=== PATIENT | male | born 1980 | race Caucasian/White ===

== ENCOUNTER 2017-03-16 14:39 | Emergency (ER) | payer OTHER ==
[2017-03-16 14:55] VITALS: BP 144/89
--- NOTE | 2017-03-16 15:40 | UC ---
Respiratory Complaint HPI - History of Current Complaint Chief Complaint: UCRespiratory Stated Complaint: CHEST CONGESTION, AND COUGH Time Seen by Provider: 03/16/17 15:39 Hx Obtained From: Patient Onset/Duration: Sudden Onset Severity Initially: Moderate Severity Currently: Moderate Pain Scale Used: 0-10 Numeric - 5 - Allergies/Home Medications Allergies/Adverse Reactions: Allergies Allergy/AdvReac Type Severity Reaction Status Date / Time No Known Allergies Allergy Verified 03/16/17 14:52 PMH/Surg Hx/FS Hx/Imm Hx Previously Healthy: Yes - Surgical History Surgical History: Yes Surgery Procedure, Year, and Place: KIDNEY STONE REMOVED - Family History Known Family History: Positive: None - Social History Alcohol Use: Rare Substance Use Type: None Smoking Status (MU): Never Smoked Tobacco Type: Smokeless Tobacco - Immunization History Most Recent Tetanus Shot: UNSURE Review of Systems Constitutional: Negative Skin: Negative Eyes: Negative ENT: Sore Throat, Nasal Discharge, Sinus Congestion, Sinus Pain/Tenderness Respiratory: Negative Cardiovascular: Negative Gastrointestinal: Negative Genitourinary: Negative Motor: Negative Neurovascular: Negative Musculoskeletal: Negative Neurological: Negative Psychological: Negative All Other Systems Reviewed And Are Negative: Yes Physical Exam Triage Information Reviewed: Yes Appearance: Well-Appearing Vital Signs: Initial Vital Signs Temp 37.2 C 03/16/17 14:53 Pulse 95 03/16/17 14:53 Resp 17 03/16/17 14:53 BP 144/89 03/16/17 14:53 Pulse Ox 99 03/16/17 14:53 Eye Exam: Normal ENT: Positive: Pharyngeal erythema, Nasal congestion, Nasal drainage, Tonsillar swelling Dental Exam: Normal Neck exam: Normal Neck: Positive: 1 Respiratory Exam: Normal Cardiovascular Exam: Normal Abdominal Exam: Normal Musculoskeletal Exam: Normal Neurological Exam: Normal Psychological Exam: Normal Skin Exam: Normal Diagnostic Evaluation - Laboratory O2 Sat by Pulse Oximetry: 99 Respiratory Course/Dx - Differential Dx/Diagnosis Provider Diagnoses: SINUS INFECTION. ASTHMA Discharge - Discharge Plan Condition: Stable Disposition: HOME Prescriptions: Amoxicillin/Clavulanate TAB* [Augmentin TAB 875*] 875 mg PO BID #20 tab guaiFENesin/CODIEN 100MG-10MG* [Robitussin AC 100Mg-10Mg*] 5 ml PO Q8H PRN #120 udc MDD 15 ml PRN Reason: Cough Patient Education Materials: Asthma (ED) Referrals: Kristopher Ashraf MD [Primary Care Provider] -
== END 2017-03-16 15:56 | disposition home or self-care (01) ==
LOC: UCEAST 14:39
DX: J32.9 Chronic sinusitis, unspecified (principal); J45.909 Unspecified asthma, uncomplicated
CPT/HCPCS: 99212; G0463

== ENCOUNTER 2017-12-08 07:02 | Emergency (ER) | payer OTHER ==
[2017-12-08 07:14] VITALS: BP 111/85
[2017-12-08] MEDS ORDERED: Albuterol 2.5 MG/3 ML NEB.SOL* (0.083%) INH ONE (07:36)
--- NOTE | 2017-12-08 07:46 | UC ---
Respiratory Complaint HPI - HPI Summary HPI Summary: PATIENT PRESENTS COMPLAINING OF 4 DAYS OF SHORTNESS OF BREATH, COUGH AND WHEEZE. STATES HE WAS IN [place] FOR A BUSINESS TRIP AND SYMPTOMS STARTED WHEN HE RETURNED. HE WAS USING HIS ALBUTEROL INHALER BUT RAN OUT. HE DENIES ANY FEVERS SORE THROAT OR NAUSEA/VOMITING. HERE HE REPORTS HIS EARS FEEL PLUGGED. STATES HE FEELS LIKE THIS IS HIS ASTHMA. HE IS NOT SLEEPING WELL DUE TO WAKING UP AT NIGHT COUGHING. - History of Current Complaint Chief Complaint: UCGeneralIllness Stated Complaint: CHEST CONGESTION Time Seen by Provider: 12/08/17 07:10 Hx Obtained From: Patient Onset/Duration: Gradual Onset, Lasting Days, Still Present Severity Initially: Moderate Severity Currently: Moderate Pain Intensity: 6 Pain Scale Used: 0-10 Numeric Character: Cough: Nonproductive Aggravating Factors: Deep Breaths Alleviating Factors: Bronchodilator Associated Signs And Symptoms: Positive: Dyspnea, Wheezing. Negative: Fever - Allergies/Home Medications Allergies/Adverse Reactions: Allergies Allergy/AdvReac Type Severity Reaction Status Date / Time No Known Allergies Allergy Verified 12/08/17 07:14 Home Medications: Home Medications GuaiFENesin DM* [Robitussin DM*] 1 dose PO Q2HR 12/08/17 [History Confirmed ] Guaifenesin/Pseudoephedrne HCl [Mucinex D ER Tablet] 1 tab PO BID 12/08/17 [ History Confirmed 12/08/17] Vitamins A, B, C , D 12/08/17 [History] PMH/Surg Hx/FS Hx/Imm Hx Respiratory History: Asthma - Surgical History Surgical History: Yes Surgery Procedure, Year, and Place: KIDNEY STONE REMOVED - Family History Known Family History: Positive: None Negative: Hypertension - Social History Alcohol Use: Rare Substance Use Type: None Smoking Status (MU): Never Smoked Tobacco Type: Smokeless Tobacco - Immunization History Most Recent Tetanus Shot: UNSURE Review of Systems Constitutional: Negative ENT: Ear Ache Respiratory: Shortness Of Breath, Cough, Other - WHEEZE Cardiovascular: Negative Gastrointestinal: Negative All Other Systems Reviewed And Are Negative: Yes Physical Exam Triage Information Reviewed: Yes Appearance: Well-Appearing, No Pain Distress, Well-Nourished Vital Signs: Initial Vital Signs Temp 99 F 12/08/17 07:09 Pulse 101 12/08/17 07:09 Resp 22 12/08/17 07:09 BP 111/85 12/08/17 07:09 Pulse Ox 96 12/08/17 07:09 Vital Signs Reviewed: Yes Eyes: Positive: Conjunctiva Clear ENT: Positive: Hearing grossly normal, Pharynx normal, TMs normal - AFTER IRRIGATION OF CERUMEN Neck: Positive: Supple, Nontender, No Lymphadenopathy Respiratory Exam: Normal Respiratory: Positive: No respiratory distress, No accessory muscle use, Decreased breath sounds. Negative: Wheezing Cardiovascular Exam: Normal Abdomen Description: Positive: Soft Musculoskeletal: Positive: No Edema Neurological: Positive: Alert Psychological: Positive: Age Appropriate Behavior Skin: Negative: rashes UC Diagnostic Evaluation - Laboratory O2 Sat by Pulse Oximetry: 96 Re-Evaluation - Re-Evaluation First Eval Re-Evaluation Time: 08:05 - FEELS BETTER AFTER ALBUTEROL NEBULIZER Change: Improved Respiratory Course/Dx - Course Course Of Treatment: RIGHT EAR SUCCESSFULLY IRRIGATED BY RN - TM CLEAR - Differential Dx/Diagnosis Provider Diagnoses: 1. ASTHMA EXACERBATION. 2. RIGHT EAR CERUMEN IMPACTION Discharge - Sign-Out/Discharge Documenting (check all that apply): Discharge/Admit/Transfer - Discharge Plan Condition: Stable Disposition: HOME Prescriptions: Albuterol HFA INHALER* [Ventolin HFA Inhaler*] 2 puff INH Q4H PRN #1 mdi PRN Reason: Shortness Of Breath predniSONE TAB* [Deltasone TAB*] 50 mg PO DAILY #5 tab Patient Education Materials: Asthma (ED), Cerumen Impaction (ED) Forms: *Work Release Referrals: Kristopher Ashraf MD [Primary Care Provider] - If Needed Additional Instructions: NOW THAT YOUR EAR CANALS ARE CLEAR OF WAX YOU MAY USE A QTIP TO GENTLY AND CAREFULLY CLEAN YOUR EARS ONCE OR TWICE A WEEK TO KEEP WAX FROM BUILDING UP. DO NOT INSERT THE QTIP ANY FURTHER THAN THE DEPTH OF THE [place]. - Billing Disposition and Condition Condition: STABLE Disposition: Home
== END 2017-12-08 08:15 | disposition home or self-care (01) ==
LOC: UCEAST 07:02
DX: J45.901 Unspecified asthma with (acute) exacerbation (principal); H61.21 Impacted cerumen, right ear
CPT/HCPCS: 99213; G0463

== ENCOUNTER 2018-03-28 12:59 | Emergency (ER) | payer OTHER ==
[2018-03-28] MEDS ORDERED: LORazepam TAB(*) 1 MG PO ONE (14:16)
[2018-03-28] MEDS ORDERED: Ketorolac INJ* 30 MG/ML 1 ML VIAL IM ONE (14:16)
[2018-03-28 14:21] LABS: EGFR Non-African American 121.6 (>60)
[2018-03-28 14:26] LABS: Lithium < 0.10 mmol/L (0.6-1.2)
[2018-03-28 14:28] LABS: ABS Basophils 0.1 10^3/ul (0-0.2); ABS Eosinophils 0.2 10^3/ul (0-0.6); ABS Lymphocytes 2.5 10^3/ul (1.0-4.8); ABS Monocytes 0.6 10^3/ul (0-0.8); ABS Neutrophils 3.7 10^3/ul (1.5-7.7); ABS Nucleated RBC 0 10^3/ul; Eosinophil % 3.3 % (0-6); Hematocrit 43 % (42-52); Hemoglobin 14.6 g/dl (14.0-18.0); Lymphocyte % 34.8 % (25-47); Mean Corpuscular HGB Conc 34 g/dl (31-36); Mean Corpuscular Hemoglobin 30 pg (27-31); Mean Corpuscular Volume 89 fL (80-94); Mean Platelet Volume 9.8 um3 (7.4-10.4); Nucleated Red Blood Cells % 0.1; Platelet Count 165 10^3/ul (150-450); Red Blood Count 4.85 10^6/ul (4.00-5.40); Red Cell Distribution Width 14 % (10.5-15); White Blood Count 7.1 10^3/ul (3.5-10.8)
--- NOTE | 2018-03-28 15:08 | ED ---
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 The pain rated 7/10 n severity is aggravated by sitting. He notes nausea but denies CP and dysuria. He applied a heat pad to no relief. - History of Current Complaint Chief Complaint: EDFlankPain Stated Complaint: ABDOMINAL PAIN Time Seen by Provider: 03/28/18 13:22 Hx Obtained From: Patient Onset/Duration: Sudden Onset - 12:00 noon today, Still Present Timing: Lasting Hours Back Pain Location: Is Diffuse - At the lower back Pain Intensity: 7 Pain Scale Used: 0-10 Numeric Aggravating Symptom(s): Other - Sitting Alleviating Symptom(s): Nothing - Allergies/Home Medications Allergies/Adverse Reactions: Allergies Allergy/AdvReac Type Severity Reaction Status Date / Time No Known Allergies Allergy Verified 12/08/17 07:14 PMH/Surg Hx/FS Hx/Imm Hx Previously Healthy: No Endocrine/Hematology History: Denies: Hx Diabetes Cardiovascular History: Denies: Hx Hypertension, Hx Pacemaker/ICD Respiratory History: Reports: Hx Asthma History: Reports: Hx Kidney Stones Denies: Hx Renal Disease Sensory History: Denies: Hx Hearing Aid Psychiatric History: Reports: Hx Panic Disorder - WHEN STRESSED OUT - Surgical History Surgery Procedure, Year, and Place: KIDNEY STONE REMOVED Infectious Disease History: No Infectious Disease History: Reports: Hx of Known/Suspected MRSA Denies: Hx Clostridium Difficile, Hx Hepatitis, Hx Human Immunodeficiency Virus (HIV), Hx Shingles, Hx Tuberculosis, Hx Known/Suspected VRE, Hx Known/ Suspected VRSA, History Other Infectious Disease, Traveled Outside the [place] in Last 30 Days - Family History Known Family History: Negative: Hypertension - Social History Occupation: Employed Full-time Lives: Alone Alcohol Use: Rare Substance Use Type: Reports: None Smoking Status (MU): Never Smoked Tobacco Type: Smokeless Tobacco Review of Systems Negative: Chest Pain Negative: dysuria Positive: Other - Positive: Lower amanda pain All Other Systems Reviewed And Are Negative: Yes Physical Exam - Summary Physical Exam Summary: Appearance: The patient is well-nourished in no acute distress and in no acute pain. Skin: The skin is warm and dry and skin color reflects adequate perfusion. HEENT: The head is normocephalic and atraumatic. The pupils are equal and reactive. The conjunctivae are clear and without drainage. Nares are patent and without drainage. Mouth reveals moist mucous membranes and the throat is without erythema and exudate. The external ears are intact. The ear canals are patent and without drainage. The tympanic membranes are intact. Neck: The neck is supple with full range of motion and non-tender. There are no carotid bruits. There is no neck vein distension. Respiratory: Chest is non-tender. Lungs are clear to auscultation and breath sounds are symmetrical and equal. Cardiovascular: Heart is regular rate and rhythm. There is no murmur or rub auscultated. There is no peripheral edema and pulses are symmetrical and equal. Abdomen: The abdomen is soft and non-tender. There are normal bowel sounds heard in all four quadrants and there is no organomegaly palpated. Musculoskeletal: Tenderness of the R. sciatica area and the para-lumbar spine. Extremities are non-tender with full range of motion. There is good capillary refill. There is no peripheral edema or calf tenderness elicited. Neurological: Patient is alert and oriented to person, place and time. The patient has symmetrical motor strength in all four extremities. Cranial nerves are grossly intact. Deep tendon reflexes are symmetrical and equal in all four extremities. Triage Information Reviewed: Yes Vital Signs On Initial Exam: Initial Vitals Temp Pulse Resp BP Pulse Ox 97.8 F 79 18 130/87 97 03/28/18 13:11 03/28/18 13:11 03/28/18 13:11 03/28/18 13:11 03/28/18 13:11 Vital Signs Reviewed: Yes Diagnostics - Vital Signs Vital Signs Temp Pulse Resp BP Pulse Ox 03/28/18 14:23 20 03/28/18 13:11 97.8 F 79 18 130/87 97 - Laboratory Lab Results: Lab Results 03/28/18 03/28/18 Range/Units 13:50 14:12 WBC 7.1 (3.5-10.8) 10^3/ul RBC 4.85 (4.00-5.40) 10^6/ul Hgb 14.6 (14.0-18.0) g/dl Hct 43 (42-52) % MCV 89 (80-94) fL MCH 30 (27-31) pg MCHC 34 (31-36) g/dl RDW 14 (10.5-15) % Plt Count 165 (150-450) 10^3/ul MPV 9.8 (7.4-10.4) um3 Neut % (Auto) 52.7 (38-83) % Lymph % (Auto) 34.8 (25-47) % [place] % (Auto) 8.3 H (0-7) % Eos % (Auto) 3.3 (0-6) % Baso % (Auto) 0.9 (0-2) % Absolute Neuts (auto) 3.7 (1.5-7.7) 10^3/ul Absolute Lymphs (auto) 2.5 (1.0-4.8) 10^3/ul Absolute Monos (auto) 0.6 (0-0.8) 10^3/ul Absolute Eos (auto) 0.2 (0-0.6) 10^3/ul Absolute Basos (auto) 0.1 (0-0.2) 10^3/ul Absolute Nucleated RBC 0 10^3/ul Nucleated RBC % 0.1 Sodium 136 (135-145) mmol/L Potassium TNP Chloride 108 (101-111) mmol/L Carbon Dioxide 21 L (22-32) mmol/L Anion Gap 7 (2-11) mmol/L BUN 14 (6-24) mg/dL Creatinine 0.73 (0.67-1.17) mg/dL Est GFR ( Amer) 147.1 (>60) Est GFR (Non-Af Amer) 121.6 (>60) BUN/Creatinine Ratio 19.2 (8-20) Glucose 109 H (70-100) mg/dL Calcium 9.0 (8.6-10.3) mg/dL Total Bilirubin 0.60 (0.2-1.0) mg/dL AST TNP ALT 49 (7-52) U/L Alkaline Phosphatase 79 (34-104) U/L Total Protein 7.1 (6.4-8.9) g/dL Albumin 4.1 (3.2-5.2) g/dL Globulin 3.0 (2-4) g/dL Albumin/Globulin Ratio 1.4 (1-3) TSH 0.75 (0.34-5.60) mcIU/mL Salicylates < 2.50 (<30) mg/dL Acetaminophen < 15 mcg/mL [place] < 0.10 L (0.6-1.2) mmol/L Serum Alcohol < 10 (<10) mg/dL Result Diagrams: 03/28/18 14:12 03/28/18 14:45 Lab Statement: Any lab studies that have been ordered have been reviewed, and results considered in the medical decision making process. - CT Lumbar spine CT CT Interpretation Completed By: Radiologist - IMPRESSION: #. Hepatomegaly and hepatosteatosis. #. Mild colonic diverticulosis without findings of acute diverticulitis. #. Normal appendix documented. #. Negative for urolithiasis or obstructive uropathy. #. Mild L3-L4 through L5-S1 degenerative spondylosis. No CT evidence for acquired spinal stenosis. The ED physician reviewed this radiology report. Abd/Pel CT CT Interpretation Completed By: Radiologist - IMPRESSION: #. Hepatomegaly and hepatosteatosis. #. Mild colonic diverticulosis without findings of acute diverticulitis. #. Normal appendix documented. #. Negative for urolithiasis or obstructive uropathy. #. Mild L3-L4 through L5-S1 degenerative spondylosis. No CT evidence for acquired spinal stenosis. The ED physician reviewed this radiology report. Back Pain Course/Dx - Course Course Of Treatment: Mr. Clark presented complaining of a fairly sudden onset of right low back pain that quickly became bilateral. It hurts to move especially to sit up on the gurney. He has no incontinence, his legs are feeling normal and his gait is normal. He has a history of kidney stones. He had some tenderness in the right paralumbar area with a mild straight leg raise. Because of his history CT was obtained which showed no stone. I think this is a musculoskeletal strain and will treat him accordingly with anti- inflammatories and Ativan as a muscle relaxer. - Diagnoses Provider Diagnoses: Lower back pain Discharge - Sign-Out/Discharge Documenting (check all that apply): Patient Departure - DC - Discharge Plan Condition: Improved Disposition: HOME Prescriptions: LORazepam TAB(*) [Ativan TAB(*)] 1 mg PO Q6H PRN #20 tab MDD 4 PRN Reason: Pain Patient Education Materials: Low Back Strain (ED) Referrals: No Primary Care Phys,NOPCP [Primary Care Provider] - Care [facility] [Outside] - 3 Days Additional Instructions: Return to ED for any new or worsening symptoms - Billing Disposition and Condition Condition: IMPROVED Disposition: Home - Attestation Statements Document Initiated by Jasmine: Yes Documenting Scribe: Rachael Valdez Provider For Whom Jasmine is Documenting (Include Credential): Dr. Vladislav Riley MD Scribe Attestation: Rachael Navarrete, scribed for Dr. Vladislav Riley MD on 03/28/18 at 1637. Scribe Documentation Reviewed: Yes Provider Attestation: The documentation as recorded by the vaniaibe, Rachael Valdez accurately reflects the service I personally performed and the decisions made by me, Dr. Vladislav Riley MD
--- NOTE | 2018-03-28 15:19 | RAD ---
INDICATION: RIGHT flank pain and low back pain. COMPARISON: No relevant prior exams available on the [facility] [place] for comparison. TECHNIQUE: Multidetector CT images were obtained from the lung bases to the ischial tuberosities. No oral contrast administered. Assessment of the visceral limited without IV contrast. Multiplanar reformation including bone algorithm images of the lumbar sacral spine.. REPORT: VISUALIZED INFERIOR THORAX: Unremarkable visualized inferior thorax. LIVER / GALLBLADDER / PANCREAS / SPLEEN: Significantly decreased density of the 20 cm cephalocaudal liver compared with the spleen consistent with hepatosteatosis. No conspicuous focal liver lesions. Unremarkable CT appearance of the gallbladder, pancreas, spleen. ALIMENTARY TRACT: Negative for CT abnormality of the upper GI, small bowel, or medially extending appendix. Mild colonic diverticulosis without findings of acute diverticulitis. Negative for ascites or free air. Small periumbilical fat-containing hernia without inflammatory change. MESENTERIC: Unremarkable. ADRENAL / GENITOURINARY: Unremarkable adrenal glands. Unremarkable kidneys. Negative for nephrolithiasis or hydronephrosis. Unremarkable nondilated ureters and partially distended urinary bladder. Symmetric seminal vesicles. RETROPERITONEAL: Multiple esophagogastric, celiac axis, and debbie hepatis lymph nodes visualized with none enlarged by short axis criteria. Top normal 1.1 cm short axis diameter portal caval lymph node. VASCULAR: Normal diameter abdominal aorta and iliac arteries. Physiologic distention of the IVC. BONES: Normal lumbar sacral spine alignment. No fracture or spondylolysis evident. Grossly preserved disc spaces. Suggestion of minimal annular disc bulges at the L3-L4, L4-L5, and L5-S1 levels without CT evidence for significant acquired spinal stenosis. Negative for CT abnormality of the bony pelvis or proximal femurs. SOFT TISSUE: Unremarkable. IMPRESSION: #. Hepatomegaly and hepatosteatosis. #. Mild colonic diverticulosis without findings of acute diverticulitis. #. Normal appendix documented. #. Negative for urolithiasis or obstructive uropathy. #. Mild L3-L4 through L5-S1 degenerative spondylosis. No CT evidence for acquired spinal stenosis.
[2018-03-28 16:21] VITALS: BP 136/83
== END 2018-03-28 16:20 | disposition home or self-care (01) ==
LOC: ED 12:59
DX: M54.5 Low back pain (principal); M47.817 Spondylosis without myelopathy or radiculopathy, lumbosacral region; K76.0 Fatty (change of) liver, not elsewhere classified; K57.30 Diverticulosis of large intestine without perforation or abscess without bleeding; Z87.442 Personal history of urinary calculi
CPT/HCPCS: 36415; 72131; 74176; 80053; 80178; 80320; 80329; 84443; 85025; 96372; 99282; A9270-GY; G0480; J1885